=== PATIENT | female | born 1950 | race Caucasian/White ===

== ENCOUNTER → 2016-09-07 | Outpatient (CLI) | payer OTHER ==
[~2016-09-07] MED LIST: ASCO500T16 PO; ASPCH81X PO; LISI5TAB PO; MULT-188 PO; MULT-513 PO; OMEG10007 PO; VITA400C15 PO
--- NOTE | 2016-09-07 15:55 | MAMMOGRAPHY REPORT ---
BILATERAL DIGITAL SCREENING MAMMOGRAM WITH CAD: 09/07/2016 CLINICAL HISTORY: Routine screening. Patient has no complaints. TECHNIQUE: Current study was also evaluated with a Computer Aided Detection (CAD) system. Bilatera l CC and MLO views were obtained. COMPARISON: Comparison is made to exams dated: 08/26/2015 mammogram, 08/14/2013 mammogram, 08/20/2014 m ammogram, 08/08/2012 mammogram, 08/09/2011 mammogram, and 07/28/2010 mammogram - [facility] enter. BREAST COMPOSITION: The tissue of both breasts is heterogeneously dense, which may obscure small ma sses. FINDINGS: No suspicious masses, calcifications, or areas of architectural distortion are noted in e ither breast. There has been no significant interval change compared to prior exams. Bilateral pao gn-appearing calcifications are not significantly changed. IMPRESSION: ACR BI-RADS CATEGORY 2: BENIGN There is no mammographic evidence of malignancy. A 1 year screening mammogram is recommended. The p atient will receive written notification of the results. Approximately 10% of breast cancers are not detected with mammography. A negative mammographic repor t should not delay biopsy if a clinically suggestive mass is present. Bia Brooks M.D. /:09/07/2016 15:12:25 Beverage Inspection Machine Tender: Molly DOSS(Je)(M), [facility] letter sent: Normal 1/2 BI-RADS Code: ACR BI-RADS Category 2: Benign
== END | disposition home or self-care (01) ==
LOC: C.MAMM 14:44
PROVIDERS: ATTEND Obstetrics & Gynecology
DX: Z12.31 Encounter for screening mammogram for malignant neoplasm of breast (principal)

== ENCOUNTER → 2017-03-06 | Outpatient (CLI) | payer OTHER | END | disposition home or self-care (01) | LOC: C.PAPS 14:34 | PROVIDERS: ATTEND Obstetrics & Gynecology | DX: N95.1 Menopausal and female climacteric states (principal) ==

== ENCOUNTER → 2017-06-01 | Outpatient (CLI) | payer OTHER ==
[2017-06-01 12:18] LABS: BASO % 0.4 %; BASO ABS # 0.02 K/uL (0-0.2); COMPLETE YES; EOS % 1.7 %; HEMATOCRIT 42.8 % (37-47); IG% 0.2 %; MEAN CELL VOLUME 88.8 fL (80-100); MEAN CORPUSCULAR HEMOGLOBIN 29.3 pg (25-34); MEAN CORPUSCULAR HGB CONC 32.9 g/dl (32-36); MEAN PLATELET VOLUME 10.1 fL (7.4-10.4); NEUT % 55.7 %; PLATELET COUNT 232 K/uL (130-400); RED BLOOD COUNT 4.82 M/uL (4.2-5.4); WHITE BLOOD COUNT 5.15 K/uL (4.8-10.8)
[2017-06-01 12:42] LABS: ALT/SGPT 26 U/L (12-78); AST/SGOT 16 U/L (15-37); BLOOD UREA NITROGEN 20 mg/dl (7-18); BUN/CREATININE RATIO 28.6 (10-20); CALCIUM 8.7 mg/dl (8.5-10.1); CARBON DIOXIDE 26 mmol/L (21-32); CHLORIDE 106 mmol/L (98-107); CREATININE 0.69 mg/dl (0.60-1.20); GLUCOSE 88 mg/dl (70-99); POTASSIUM 3.9 mmol/L (3.5-5.1); SODIUM 137 mmol/L (136-145)
[2017-06-01 12:54] LABS: ALB/GLOB RATIO 1.4 (0.9-2); ALKALINE PHOSPHATASE 84 U/L (45-117); CHOLESTEROL 203 mg/dl (0-200); CHOLESTEROL/HDL RATIO 1.9; HDL CHOLESTEROL 109 mg/dl; TRIGLYCERIDES 75 mg/dl (0-150); VERY LOW DENSITY LIPOPROT CALC 15 mg/dl
== END | disposition home or self-care (01) ==
LOC: C.LAB 10:42
PROVIDERS: ATTEND Internal Medicine
DX: E78.5 Hyperlipidemia, unspecified (principal); R53.83 Other fatigue; Z13.89 Encounter for screening for other disorder

== ENCOUNTER → 2017-10-27 | Outpatient (CLI) | payer OTHER ==
--- NOTE | 2017-10-30 14:34 | MAMMOGRAPHY REPORT ---
BILATERAL DIGITAL SCREENING MAMMOGRAM TOMOSYNTHESIS WITH CAD: 10/27/2017 CLINICAL HISTORY: Routine screening. Patient has no complaints. TECHNIQUE: Breast tomosynthesis in addition to standard 2D mammography was performed. Current study was also evaluated with a Computer Aided Detection (CAD) system. COMPARISON: Comparison is made to exams dated: 09/07/2016 mammogram, 08/26/2015 mammogram, 08/20/2014 ma mmogram, 08/14/2013 mammogram, 08/08/2012 mammogram, and 02/09/2012 mammogram - [facility]. BREAST COMPOSITION: The tissue of both breasts is heterogeneously dense, which may obscure small mas ses. FINDINGS: No suspicious masses, calcifications, or areas of architectural distortion are noted in ei ther breast. There has been no significant interval change compared to prior exams. Bilateral benign -appearing calcifications are not significantly changed. IMPRESSION: ACR BI-RADS CATEGORY 2: BENIGN There is no mammographic evidence of malignancy. A 1 year screening mammogram is recommended. The pa tient will receive written notification of the results. Approximately 10% of breast cancers are not detected with mammography. A negative mammographic report should not delay biopsy if a clinically suggestive mass is present. Bia Brooks M.D. /:10/27/2017 15:53:42 Kosher Inspector: Lisa Riley, [facility] letter sent: Normal 1/2 BI-RADS Code: ACR BI-RADS Category 2: Benign
== END | disposition home or self-care (01) ==
LOC: C.MAMM 15:12
PROVIDERS: ATTEND Obstetrics & Gynecology
DX: Z12.31 Encounter for screening mammogram for malignant neoplasm of breast (principal)

== ENCOUNTER 2024-05-21 06:03 | Inpatient (IN) ==
--- NOTE | 2024-05-14 14:41 | Anesthesiology Consultation ---
Date of Service May 14, 2024 Assessment & Plan (1) Encounter for pre-operative examination: - Infectious disease screening: Per assessment on 05/14/24- No known recent infectious disease contacts or current infectious disease symptoms. - Cardiology visit (07/12/23): "Assessment: 1. Episodes of atypical chest discomfort May 2023. Dull retrosternal discomfort at rest. Duration was seconds to 10 minutes. No radiation. No associated symptoms. No relationship to activity. Over the past 2 weeks she has had no such discomfort. She has been very active over the past 2 weeks. She was extensively traveling over the past 2 weeks. This include prolonged walking. She can walk up to 4 miles at 1 time without any anginal or anginal equivalent symptoms. Do not suspect that her discomfort in May was secondary to myocardial ischemia. No exertional component to it. No such symptoms with prolonged strenuous exertion. 2 Electrocardiogram May other than for possible left atrial enlargement. 3. Longstanding history of hypertension. She is now on lisinopril 5 mg b.i.d.. This was inadvertently taken off of her medication list somehow during this visit. It was Re added by me. 4. Good lipid profile without pharmacologic the rapy. 5. No cerebrovascular or peripheral vascular complaints. Carotid artery duplex scan in 2020 revealed no hemodynamically significant stenoses. Minimal atherosclerotic plaque. Plan: 1. Monitor blood pressures at home. Blood pressures remain elevated could increase lisinopril dose to 10 mg b.i.d.. 2. She has no anginal or anginal equivalent type symptoms with prolonged strenuous activity will hold off on ordering any stress testing at this time. If she has recurrent chest discomfort could consider a stress echocardiogram. Her exercise tolerance and stamina are very stable over the past several weeks. 3. Low- sodium diet. 4. Continue follow-up in primary care clinic. 5. As needed cardiology clinic follow-up." > Subsequent Echo + stress test done 02/2024- unremarkable findings. Chart Review Chart Review: Acceptable Risk for Surgery and Patient NOT seen in Pre Admission Testing History Surgery Operation Date: 05/21/24 07:30 Proposed Procedures p Robotic assisted Laparoscopic Right Radical Nephrectomy - Luis Valero MD Height/Weight Height: 5 ft 5 in Weight: 61.235 kg Allergies Allergy/AdvReac Type Severity Reaction Status Date / Time No Known Allergies Allergy Verified 05/14/24 13:14 Medications Home Medications Medication Instructions Recorded Confirmed Last Taken multivitamin 1 tab PO QAM 03/05/18 05/14/24 01/17/22 omega 7-vix-kix-fish oil 1,000 mg 1 cap PO QAM 03/05/18 05/14/24 01/17/22 (120 mg-180 mg) capsule (Fish Oil) turmeric 400 mg capsule 200 mg PO QAM 11/26/20 05/14/24 01/17/22 vitamin B complex 1 tab PO QAM 11/26/20 05/14/24 01/17/22 cholecalciferol (vitamin D3) 125 50 mcg PO DAILY 01/17/22 05/14/24 01/17/22 mcg (5,000 unit) tablet (Vitamin D3) mecobalamin (vitamin B12) 2,500 2,500 mcg PO DAILY 09/29/22 05/14/24 Unknown mcg chewable tablet magnesium 200 mg tablet 250 mg PO HS 07/12/23 05/14/24 Unknown alendronate 70 mg tablet 70 mg PO Q7D #12 tabs 08/30/23 05/14/24 Unknown gabapentin 100 mg capsule 100 - 300 mg PO HS PRN insomnia 05/14/24 05/14/24 Unknown lisinopril 40 mg tablet 40 mg PO QAM 05/14/24 05/14/24 Unknown Past Medical History Medical History History of COVID-19 (05/2020) Hx of colonic polyps Hypertension Osteoporosis UPJ obstruction, congenital Past Family History Family History Grandmother (Maternal) Myocardial infarction Grandfather (Maternal) Cancer Aunt Cancer Uncle Myocardial infarction Denies family history of Ovarian cancer Prostate cancer Breast cancer Colorectal cancer Past Surgical History Surgical History History of cataract surgery B/L History of esophagogastroduodenoscopy (EGD) Hx of colonoscopy with polypectomy Hx of wisdom tooth extraction Status post excision of lipoma Social History Smoking Status: Never smoker Do You Dip or Chew Tobacco: No Hx Alcohol Use: Yes Alcohol type: wine alcohol intake frequency: a few times a week Hx Substance Use: No substance use type: does not use Lab Results Anesthesia Preop Results Results Anesthesia Widget: WBC 6.75 K/ul (4.8-10.8) 05/06/24 Hgb 13.3 g/dl (12.0-16.0) 05/06/24 Hct 41.1 % (37.0-47.0) 05/06/24 Plt 239 K/uL (130-400) 05/06/24 Na 138 mmol/L (136-145) 05/06/24 K 5.0 mmol/L (3.5-5.1) 05/06/24 Cl 104 mmol/L (98-107) 05/06/24 CO2 29 mmol/L (21-32) 05/06/24 BUN 30 mg/dl (6-23) H 05/06/24 Creat 0.99 mg/dl (0.6-1.2) 05/06/24 Glucose Level 85 mg/dl (70-99(Fasting)) 05/06/24 Testing Laboratory Results Urine culture (05/06/24): Probable skin genna Electrocardiogram Date: 06/07/23 SR at 70bpm. Possible LAE. No significant change compared to 01/17/2022 per solid waste disposal manager comparison. Echocardiogram Date: 02/27/24 EF 60-65%. Grade I DD. No RWMA. No thrombus. No significant valvular disease. Borderline ascending aortic dilatation. Stress Test Date: 02/28/24 Protocol and parameters: The patient exercised on the treadmill utilizing the standard King protocol. She exercised a total of 6 minutes. Maximum workload attained 7.00 METS. Resting heart rate 75 beats per minute. Maximum heart rate following exercise 142 beats per minute. This was 95% of the maximum predicted heart rate. Resting blood pressure 122/78 mm Hg. Maximum blood pressure following exercise 160/80 mm Hg. Exercise terminated secondary to fatigue. No complaint of chest pain during exercise. Resting electrocardiogram: Normal sinus rhythm. Normal ST segments. Electrocardiogram is normal. Post exercise electrocardiogram: Sinus tachycardia. No diagnostic or significant ST segment changes. No ST segment evidence of myocardial ischemia. Conclusions: 1. Maximal treadmill exercise stress test to 95% maximum predicted heart rate negative for chest pain. ECG response to exercise normal. No ECG evidence of stress-induced myocardial ischemia. 2. Normal hemodynamic response to exercise. 3. No exercise-induced arrhythmias. Other Testing Abdomen/Pelvis CT Date: 12/26/22 FINDINGS: Lower chest: Bibasilar atelectasis versus scarring is seen. Liver: Unremarkable. No focal lesions are seen. Gallbladder and biliary tree: Patient is status post cholecystectomy. Physiologic prominence of the biliary ducts is noted. Pancreas: Unremarkable, no focal lesions. Spleen: Unremarkable. Adrenals: Calcifications are seen in left adrenal gland. Kidneys and ureters: Extensive hydronephrosis is seen in the right kidney with atrophy of the cortex. Bladder: Unremarkable. Reproductive organs: Unremarkable. Bowel: The appendix is normal. Lymph nodes: Retroperitoneal: Unremarkable. Pelvic: Unremarkable. Mesenteric: Unremarkable. Peritoneum: Normal. Vessels: Unremarkable. Abdominal wall: A fat-containing umbilical hernia is seen. Bones: Degenerative changes in the visualized spine. Scoliosis is seen. IMPRESSION:Redemonstration of right hydronephrosis and cortical atrophy which may represent a UPJ obstruction.
[2024-05-21] MEDS ORDERED: DEXAMETHASONE SOD INJ 4 MG/ML VIAL ONE (06:45)
[2024-05-21] MEDS ORDERED: ONDANSETRON INJ 2 MG/ML 2 ML VIAL ONE ×2 (06:45→07:43)
[2024-05-21] MEDS ORDERED: GLYCOPYRROLATE 0.2 MG/ML VIAL ONE (06:45)
[2024-05-21] MEDS ORDERED: ROCURONIUM BROMIDE 10 MG/ML 5 ML VIAL IV ONE (06:45)
[2024-05-21] MEDS ORDERED: PROPOFOL IV EMULSION 10 MG/ML 20 ML VIAL IV ONE (06:45)
[2024-05-21] MEDS ORDERED: LIDOCAINE 2% 2 ML VIAL/AMP(20MG/ML) INFIL ONE (06:45)
[2024-05-21] MEDS ORDERED: fentaNYL citrate PF 100 MCG/2 ML VIAL ONE ×2 (06:46→09:25)
[2024-05-21] MEDS ORDERED: MIDAZOLAM HCL 1 MG/ML 2ML VIAL ONE (06:46)
[2024-05-21] MEDS: LR 15ML/HR IV SCH (06:51)
[2024-05-21] MEDS ORDERED: ACETAMINOPHEN 1000 MG/100 ML IV IV ONE (06:52)
[2024-05-21] MEDS ORDERED: ALBUMIN HUMAN 5% 12.5 GM/250 ML VIAL IV ONE (06:52)
[2024-05-21] MEDS ORDERED: diphenhydrAMINE 50 MG/ML VIAL ONE (06:56)
[2024-05-21] MEDS ORDERED: KETAMINE HCL 10MG/ML SYR ONE (06:57)
[2024-05-21] MEDS ORDERED: LABETALOL HCL IV 5 MG/ML 20ML IV PRN (07:08)
[2024-05-21] MEDS ORDERED: PROMETHAZINE HCL 6.25 MG in SODIUM CHLORIDE 0.9% 50 ML IV PRN (07:08)
[2024-05-21] MEDS ORDERED: ONDANSETRON INJ 2 MG/ML 2 ML VIAL IV PRN ×2 (07:08→10:56)
[2024-05-21] MEDS ORDERED: ATROPINE SULFATE 0.1 MG/ML 10ML SYR IV PRN (07:08)
--- NOTE | 2024-05-21 07:20 | History & Physical Bridge Note ---
Date of Service May 21, 2024 History & Physical Bridge Note I have examined the patient, reviewed the History & Physical and in the interval since the performance of the History & Physical I have noted the following changes of clinical significance: no changes noted
[2024-05-21] MEDS: ceFAZolin 2000MG 2,000 MG/15 ML SYR IV SCH ×2 (07:30→15:35)
[2024-05-21] MEDS ORDERED: SUGAMMADEX SODIUM 200 MG/2 ML VIAL IV ONE (07:42)
[2024-05-21] MEDS ORDERED: PHENYLEPHRINE 100MCG/ML 5ML SYR ONE (08:01)
[2024-05-21] MEDS ORDERED: PHENYLEPHRINE HCL 10 MG/ML VIAL ONE (08:23)
[2024-05-21] MEDS: FLOSEAL HEMOSTATIC MATRIX 10ML TOP ONE (09:19)
[2024-05-21] MEDS: SURGICEL ABSORB HEMOSTAT 2IN X 14IN TOP ONE (09:19)
[2024-05-21] MEDS: TISSEEL FIBRIN SEALANT 10ML TOP ONE (09:19)
[2024-05-21] MEDS: BUPIVACAINE 0.5 % 5 MG/1 ML MPF 30ML VIAL ONE (09:30)
--- NOTE | 2024-05-21 09:46 | Operative Report ---
PG Post Operative Report Pre & Post Diagnosis Operation Date: 05/21/24 07:30 Pre-Op Diagnosis: Ureteropelvic junction obstruction, congenital Post-Op Diagnosis: Ureteropelvic junction obstruction, congenital I identified the patient and participated in the time-out.: Yes Procedure Operation Date: 05/21/24 07:30 Actual Procedures p Robotic Assisted Laparoscopic Radical Nephrectomy - Right(Right) - Luis Valero MD Surgeon Luis Valero MD Cell Installer Sarah Mishra Estimated Blood Loss 20 Findings Consistent with Post-Op Diagnosis Specimens Right kidney Description of Procedure The patient was identified in the preoperative holding area, appropriate informed consents were reviewed and completed. She was transported to the operating suite where she received appropriate preoperative antibiotics. General anesthesia was induced and she was placed in the left side down right side up lateral decubitus position with the bed flexed. She was padded and braced appropriately. She was sterilely prepped and draped in standard fashion. Of note, she has a palpable mass in the right hemiabdomen consistent with a grossly dilated renal pelvis and poorly functioning kidney seen on preoperative imaging. She is quite thin because of the size of the kidney we had a plan entry into the abdomen appropriately. Veress needle was passed per umbilicus and abdomen insufflated to 15 mmHg. A subumbilical port was incised and a 12 mm Visiport utilized for initial visual entry into the abdomen. Inspection reveal ed a clear right hemiabdomen with a large renal pelvis extending nearly to the anterior abdominal wall and a crossing the midline. I was able to dillan additional port sites. An 8 mm robotic port was placed in the upper midline approximately 10 cm above the umbilicus. A second port was placed at the rectus border just above the umbilicus and a third 8 mm port was placed just inferior to the umbilicus and lateral to the rectus sheath. Each of these ports was placed under direct vision. The robot was then docked and the case initiated. Given the mass effect of the kidney, mobility was very limited. Fortunately, this had auto dissected most of the other structures away from the kidney. On the inferior aspect of the kidney I was able to incise the white line of Toldt and remove the colon off of the lower portion of Gerota's fascia. I then worked my way medially and was able to reflect the colon further as well as kocherize the duodenum. Once the duodenum was mobilized I was able to visualize the inferior vena cava and the gonadal vein. I was able to traced the lateral edge of the vein until I reached the inferior aspect of the renal vein. She did have a significant amount of lymphedema in this area and prominent lymphatic vasculature. I carefully worked my way through the structures until we skeletonized the vein itself. A second vein was visualized immediately posterio r to the first. At the artery appears to be located between the 2 with a small branch anterior to the vein as well. I dissected above the vascular structures to create a window to pass a stapler. I still was not completely satisfied with my window at that time so I elected to deflate the renal pelvis by making an anterior incision. After clearing this urine from the renal pelvis, space was much better. Because of the redundant tissue, I utilized a 2 oh V-Loc suture to fold this tissue up and lateral and out of my [id number]-[id number]. This greatly improved visualization and allowed superior dissection. We completed the dissection around the hilar structures before firing a solitary staple load across the artery and vein simultaneously. A second staple load was utilized between the medial superior aspect of the kidney and the adrenal gland. A third staple load was utilized around the extreme upper portion of the kidney. I then proceeded to dissect posteriorly and the lateral aspect of the kidney. I used Bovie electrocautery and bipolar electrocautery to control the ureter at the inferior aspect of the dissection. This totally freed the kidney which was relatively small specimen after sucking all of the urine out. Hemostasis was excellent. I extracted through a right lower quadrant incision which was an extension of the 8 mm robotic port. There was approximately 6 cm in length. Fascia was closed with a running 0 Vicryl. The midline ports were closed with 0 Vicryl followed by 4-0 Monocryl in all skin incisions. Marcaine was utilized to anesthetize the muscle and skin layers in all incisions. Dermabond was placed over the incisions. The specimen was passed off the table for pathology and she was reversed of anesthesia and taken to the recovery room in stable condition. Sarah Mishra assisted throughout the entire case from skin incision to closure. I attest to the content of the Intraoperative Record and any orders documented therein. Any exceptions are noted below.
[2024-05-21] MEDS: HYDROmorphone INJ 1 MG/ML SYRINGE IV PRN (10:06)
[2024-05-21 10:21] LABS: Basophils # (auto) 0.02 K/uL (0.00-0.20); Basophils % (auto) 0.2 %; Eosinophils # (auto) 0.06 K/uL (0.00-0.50); Eosinophils % (auto) 0.7 %; Hematocrit (blood only) 35.1 % (37.0-47.0); Hemoglobin 11.3 g/dl (12.0-16.0); Immature Granulocytes # (auto) 0.05 K/uL (0.01-0.20); Immature Granulocytes % (auto) 0.6 %; Lymphocytes # (auto) 1.76 K/uL (1.20-3.40); Lymphocytes % (auto) 20.6 %; Mean Corpuscular Hemoglobin 28.8 pg (25.0-34.0); Mean Corpuscular Hgb Conc 32.2 g/dL (32.0-36.0); Mean Corpuscular Volume 89.5 fL (80.0-100.0); Mean Platelet Volume 9.7 fL (9.4-12.4); Monocytes # (auto) 0.34 K/uL (0.11-0.59); Neutrophils # (auto) 6.33 K/uL (1.40-6.50); Neutrophils % (auto) 73.9 %; Platelet Count 169 K/uL (130-400); RDW Coefficient of Variation 12.9 % (11.5-14.5); RDW Standard Deviation 42.7 fL (36.4-46.3); Red Blood Count 3.92 M/uL (4.20-5.40); White Blood Count 8.56 K/ul (4.8-10.8)
[2024-05-21 10:45] LABS: BUN Creatinine Ratio 24.6 (10-20); Calcium 8.2 mg/dl (8.6-10.3); Creatinine Clr Calc Pharmacy 33.6 ml/min; Potassium 5.1 mmol/L (3.5-5.1)
[2024-05-21] MEDS ORDERED: GABAPENTIN 100 MG CAP PO PRN (10:56)
[2024-05-21] MEDS ORDERED: MoRPHine SULFATE 2 MG/ML CARP IV PRN ×2 (10:56)
[2024-05-21] MEDS ORDERED: oxyCODONE HCL IR 5 MG TAB (IMMEDIATE RELEASE) PO PRN (10:56)
[2024-05-21] MEDS: FAMOTIDINE/PF 20 MG/2 ML VIAL IV ONE (11:02)
[2024-05-21] MEDS: oxyCODONE HCL IR 5 MG TAB (IMMEDIATE RELEASE) PO PRN (11:16)
--- NOTE | 2024-05-21 11:24 | Anesthesiology Progress Note ---
Date of Service May 21, 2024 Anesthesia Post Procedure Vital Signs Vital Signs: Temp Pulse Pulse Resp BP Pulse Ox O2 Del Method 05/21/24 11:20 36.4 C L 66 16 125/86 99 Room Air 05/21/24 10:50 36.4 C L 75 16 119/80 99 Room Air 05/21/24 10:40 68 13 107/72 100 Room Air 05/21/24 10:30 75 16 117/71 99 Room Air 05/21/24 10:20 36.6 C 81 15 133/87 100 Oxymask 05/21/24 10:10 75 14 137/86 100 Oxymask 05/21/24 10:00 73 16 134/79 100 Oxymask 05/21/24 09:50 77 15 125/79 100 Oxymask 05/21/24 09:42 36.3 C L 82 21 117/82 100 Oxymask 05/21/24 06:58 176/99 H 05/21/24 06:25 36.7 C 78 18 172/107 H 98 Room Air O2 Flow Rate 05/21/24 11:20 05/21/24 10:50 05/21/24 10:40 0 05/21/24 10:30 0 05/21/24 10:20 4 05/21/24 10:10 4 05/21/24 10:00 4 05/21/24 09:50 8 05/21/24 09:42 12 05/21/24 06:58 05/21/24 06:25 Pain Intensity Abdomen: Pain Intensity: 4 Transfer of Care Handoff Completed per policy Notes Mental Status: alert / awake / arousable Patient Amnestic to Procedure: Yes Nausea / Vomiting: adequately controlled Pain: adequately controlled Airway Patency, RR, SpO2: stable & adequate BP & HR: stable & adequate Hydration State: stable & adequate Anesthetic Complications: no major complications apparent
[2024-05-21] MEDS ORDERED: SODIUM CHLORIDE 0.9% INJ 100 ML BAG IV SCH (14:15)
[2024-05-21] MEDS: SODIUM CHLORIDE 0.9% 1,000 ML IV SCH (14:28)
[2024-05-21] MEDS: HEPARIN SOD 5,000 UNIT/0.5 ML VIAL SQ SCH (22:19)
[2024-05-21] MEDS: MAGNESIUM OXIDE 400 MG TAB PO SCH (22:19)
[2024-05-21] MEDS: DOCUSATE SODIUM 100 MG CAP PO SCH (22:19)
[2024-05-22] MEDS: ACETAMINOPHEN 325 MG TAB PO PRN (03:53)
[2024-05-22 06:27] LABS: Hematocrit (blood only) 31.9 % (37.0-47.0); Hemoglobin 10.6 g/dl (12.0-16.0); Mean Corpuscular Hemoglobin 29.4 pg (25.0-34.0); Mean Corpuscular Hgb Conc 33.2 g/dL (32.0-36.0); Mean Corpuscular Volume 88.4 fL (80.0-100.0); Platelet Count 173 K/uL (130-400); RDW Standard Deviation 42.4 fL (36.4-46.3); Red Blood Count 3.61 M/uL (4.20-5.40); White Blood Count 8.11 K/ul (4.8-10.8)
[2024-05-22 06:39] LABS: BUN Creatinine Ratio 18.7 (10-20); Calcium 7.7 mg/dl (8.6-10.3); Creatinine Clr Calc Pharmacy 43.4 ml/min; Potassium 4.5 mmol/L (3.5-5.1)
[2024-05-22 07:25] VITALS: BP 126/72; PULSE 67; RESP 17; TEMP 98.2; O2SAT 94
[2024-05-22] MEDS: lisinopril 40 MG TAB PO SCH (08:30)
--- NOTE | 2024-05-22 09:25 | Urology Progress Note ---
Date of Service May 22, 2024 Assessment & Plan (1) UPJ obstruction, congenital: Plan Postop day #1 status post right radical nephrectomy Improving appropriately Labs appropriatecreatinine 1.0stable with preoperative labs Good urine output Plan for discharge home this morning Admission and Anticipated Discharge Date Admission Date: May 21, 2024 Subjective Doing great overall Good urine output last night Ambulatory Tolerating a diet Anxious for discharge home Physical Exam Physical Exam: Incisions appropriate Abdomen soft, not distended Results & Data Vital Signs (Past 12 Hours) Vital Signs Temp Pulse Resp BP BP Pulse Ox O2 Del Method 05/22/24 07:24 36.8 C 67 17 126/72 94 Room Air 05/22/24 03:42 36.6 C 72 20 116/75 97 Room Air 05/22/24 03:00 36.9 C 63 16 128/81 95 Room Air 05/21/24 22:41 36.5 C 54 L 16 146/78 H 98 Room Air PG Care Time/CCT Total # of Minutes Spent Total Time Spent with Patient: Total time spent is greater than 50% in coordination of care (as documented) at patient's floor/unit and/or counseling patient: Coding Level of Care Code None Diagnoses UPJ obstruction, congenital Q62.39
--- NOTE | 2024-05-22 15:50 | Discharge Summary ---
Date of Service May 22, 2024 Admission HPI Per Admitting Provider 73-year-old female with a nonfunctional right kidney with massively dilated renal pelvis secondary to chronic right UPJ obstruction who presents for robotic assisted right radical nephrectomy Admission Exam Per Admitting Provider Constitutional well developed and well nourished Neck neck nontender Respiratory normal respiratory effort; no respiratory distress and does not use accessory muscles Cardiovascular Rate/Rhythm: regular rate Vessels: radial pulses present Extremities: no edema Gastrointestinal (Abdomen) Inspection/Auscultation: abdomen normal to inspection Percussion/Palpation: abdomen soft; abdomen nontender and no guarding Musculoskeletal Head/Neck/Chest: normocephalic and head atraumatic Extremities: extremities normal to inspection Skin no rashes and no lesions Trauma: no evidence of skin trauma Neurologic awake; not obtunded Speech / Cognition: normal speech Motor/Sensory: no tremor Psychiatric Orientation: alert and oriented x 3 Lymphatic no lymphadenopathy Principal Diagnosis Ureteropelvic junction obstruction, congenital Discharge Exam Constitutional no acute distress Respiratory no respiratory distress and no labored breathing Gastrointestinal (Abdomen) Incisions appropriate Neurologic moves all extremities and awake Psychiatric A+Ox3, euthymic affect Discharge Data Allergies Allergy/AdvReac Type Severity Reaction Status Date / Time No Known Allergies Allergy Verified 05/21/24 06:27 Procedures Performed Operation Date: 05/21/24 07:30 Actual Procedures p Robotic Assisted Laparoscopic Radical Nephrectomy - Right(Right) - Luis Valero MD Hospital Course (1) UPJ obstruction, congenital: Plan 73-year-old female admitted status post right radical nephrectomy. Patient tolerated procedure well. No issues postoperatively. Remained afebrile and hemodynamically stable. Labs appropriate. Voiding spontaneously following catheter removal. Good urine output. Tolerated diet. Reported minimal pain. Ambulated without issue. Patient was discharged home on postop day #1. She was in stable condition at time of discharge. Discharge instructions were reviewed and all questions were answered. Total Time Total Time Spent Total Time Spent (In Minutes): 15 Discharge Plan Discharge Items Patient Disposition: Home - Self-Care Reason For Visit: Other Obstructive Defects Renal Pelvis and Ureter Discharge Diagnosis: Ureteropelvic junction obstruction, congenital Condition on Discharge: Good Activity: Per Instructions section Lifting: No more than 10 pounds Bathing Comment: Ok to shower. No tub baths or soaks. Sexual Activity: Wait until after follow-up appointment Exercise/Sports: Wait until after follow-up appointment Driving/Machine Use: Do not drive if taking prescription pain medication Non-emergency contact: Surgeon and Urologist Call non-emergency contact if: you have any medication questions, your pain is not controlled, your pain is worsening, you have a fever, your wound has increased redness, your wound has increased drainage and your wound pain has increased Follow-up/Referrals: Luis Valero MD [Physician] - 07/01/24 11:15 am Rosa Escobar MD [Primary Care Provider] - Diet: Regular Addtl Attending Provider Instructions: Please take all medications as prescribed and keep all follow-ups as scheduled. Please call our office at [phone] with any questions, concerns or need to reschedule appointments for any reason. We are happy to assist you. Recovering at home: We recommend having someone with you for the first few days after surgery to help care for you. It is okay to shower tomorrow. Please avoid swimming, bathing or using hot tub until incisions are well healed. Avoid driving until you are not requiring pain medication any further. Walk at least a few times a day. Increase your distance, as you feel able. Stairs in your home are okay. Please avoid strenuous or sexual activity until your follow-up. We recommend using stool softener (i.e. Colace) to prevent constipation and straining, especially the first two weeks post operatively. Call [facility] at [phone] if you experience: Chest pain or trouble breathing (call 385 or go to the hospital). Fever of 101F or higher Symptoms of infection at incision site, including redness or swelling, warmth, or bad-smelling drainage If you are unable to urinate Pain that is not controlled with medicines Pending Studies at Discharge: Yes (pathology) Stand-Alone Forms: [facility], Pain - Opioid Pain Management, Smoking Cessation Medications and DC Order Prescriptions: New oxycodone 5 mg tablet 5 mg PO Q8H PRN (Reason: pain) Qty: 5 0RF Continued alendronate 70 mg tablet 70 mg PO Q7D Qty: 12 3RF Rx Instructions: Take medication on empty stomach and then sit upright for 30 minutes once a week mecobalamin (vitamin B12) 2,500 mcg tablet,chewable 2,500 mcg PO DAILY magnesium 200 mg tablet 250 mg PO HS multivitamin Tablet 1 tab PO QAM omega 6-pbj-udl-fish oil [Fish Oil] 1,000 mg (120 mg-180 mg) Capsule 1 cap PO QAM vitamin B complex Tablet Extended Release 1 tab PO QAM turmeric 400 mg Capsule 200 mg PO QAM cholecalciferol (vitamin D3) [Vitamin D3] 125 mcg (5,000 unit) Tablet 50 mcg PO DAILY gabapentin 100 mg capsule 100 - 300 mg PO HS PRN (Reason: insomnia) lisinopril 40 mg tablet 40 mg PO QAM Discharge Orders: Discharge Order (Routine); Ordered 05/22/24 Ordered By: Sarah Whittaker/Other Patient Handouts: DVT Post Op Prevention Admission Data Admit Date/Time: 05/21/24 09:43 Attending Provider: Luis Valero Admit Provider: Luis Valero Primary Care Provider: Rosa Escobar Other Interventions: Discharge Summary Assessment (RN) Last Done: 05/22/24 11:21 Coding Level of Care Code 37817 IN/OBS DISCH 30 MIN/LESS Diagnoses UPJ obstruction, congenital Q62.39
== END 2024-05-22 13:17 | disposition home or self-care (01) | DRG 661 ==
LOC: ASU 06:03 → 3E 09:43